=== PATIENT | female | born 1970 | race Caucasian/White ===

== ENCOUNTER 2020-04-26 06:06 | Emergency (ER) | payer BC ==
[2020-04-26] MEDS ORDERED: Dexamethasone 4 mg/ml Vial ONE (06:38)
[2020-04-26] MEDS ORDERED: Ketorolac Tromethamine 60 MG/2 ML VIAL ONE (06:38)
[2020-04-26] MEDS ORDERED: Diazepam 5 MG TAB ONE (06:51)
[2020-04-26] MEDS ORDERED: HYDROcodone/Acetaminophen 10/325 mg Tablet ONE (06:51)
== END 2020-04-26 07:20 | disposition home or self-care (01) ==
LOC: MADERS 06:06
DX: M54.42 Lumbago with sciatica, left side (principal)
CPT/HCPCS: 96372; 99283; J1100; J1885

== ENCOUNTER 2020-08-25 14:50 | Emergency (ER) | payer BC ==
[2020-08-25] MEDS ORDERED: Ketorolac Tromethamine 30 MG/ML VIAL ONE (15:24)
== END 2020-08-25 15:35 | disposition home or self-care (01) ==
LOC: MADERS 14:50
DX: S33.5XXA Sprain of ligaments of lumbar spine, initial encounter (principal); X58.XXXA Exposure to other specified factors, initial encounter
CPT/HCPCS: 96372; 99283; J1885